=== PATIENT | male | born 1970 | race Hispanic/Latino ===

== ENCOUNTER 2022-06-07 07:25 | Day surgery (SDC) | payer BC ==
[2022-06-04 11:40] LABS: BASOPHILS % (AUTO) 0.8 % (0.0-5.0); EOSINOPHILS % (AUTO) 1.3 % (0.0-8.0); LYMPHOCYTES % (AUTO) 22.1 % (21.0-51.0); MEAN CORPUSCULAR HGB CONC 34.9 g/dL (32.0-36.0); MEAN CORPUSCULAR VOLUME 80.2 fL (79-99); MONOCYTES % (AUTO) 5.5 % (3.0-13.0); NEUTROPHILS % (AUTO) 69.9 % (40.0-77.0); PLATELET COUNT (AUTO) 156 K/uL (130-400); RED BLOOD CELL COUNT(AUTO) 5.61 MIL/uL (4.50-6.20); RED CELL DISTRIBUTION WIDTH 13.3 % (11.0-15.5); WHITE BLOOD COUNT (AUTO) 7.1 K/uL (4.8-10.8)
[2022-06-04 11:50] LABS: CREATININE 0.9 mg/dL (0.5-1.5)
[2022-06-04 11:51] LABS: INR 0.94 (0.85-1.15); PROTHROMBIN TIME 10.3 SEC (9.6-11.6)
[2022-06-04 11:52] LABS: PARTIAL THROMBOPLASTIN TIME 27.4 SEC (26.3-35.5)
[2022-06-04 12:12] VITALS: BP 173/76
[2022-06-07] VITALS (15 sets, daily range): BP systolic 117–138; BP diastolic 65–83
[~2022-06-07] VITALS: Ht 170.2 cm; Wt 96.3 kg
[~2022-06-07 07:25] MED LIST: CEFAZOLIN SODIUM 1 GM VIAL IVP SCH; INSU100I24 SQ; METF-444 PO
[2022-06-07] MEDS ORDERED: NEOMY SULF/BACITRAC ZN/POLY OINT 30GM TUBE TP ONE (07:29)
[2022-06-07] MEDS ORDERED: BUPIVACAINE/PF 0.25% 30ML VIAL IJ ONE (07:29)
[2022-06-07] MEDS ORDERED: 0.9%NACL 1000ML 1,000 ML IV ONE (07:47)
[2022-06-07] MEDS ORDERED: GLIM4TAB36 PO (07:52)
[2022-06-07] MEDS ORDERED: MIDAZOLAM HCL 1 MG/ML 2ML VIAL ONE (09:07)
[2022-06-07] MEDS ORDERED: FAMOTIDINE 20MG VIAL IV ONE (09:08)
[2022-06-07] MEDS ORDERED: GLYCOPYRROLATE 1 MG/5 ML SYRINGE ONE (09:11)
[2022-06-07] MEDS ORDERED: FENTANYL CITRATE PF 50 MCG/1 ML 2ML VIAL ONE (09:11)
[2022-06-07] MEDS ORDERED: ROCURONIUM 10MG/1ML SYR 10 MG/ML ML ONE (09:11)
[2022-06-07] MEDS ORDERED: PROPOFOL 10 MG/ML 20ML VIAL IV ONE (09:11)
[2022-06-07] MEDS ORDERED: ONDANSETRON 4MG INJ ONE (09:38)
[2022-06-07] MEDS ORDERED: NEOSTIGMINE 5MG/5ML SYR IV ONE (09:59)
== END 2022-06-07 12:15 | disposition home or self-care (01) ==
LOC: DAH 07:25
PROVIDERS: ATTEND Urology
DX: N47.1 Phimosis (principal); K21.9 Gastro-esophageal reflux disease without esophagitis; E11.65 Type 2 diabetes mellitus with hyperglycemia; Z79.01 Long term (current) use of anticoagulants
CPT/HCPCS: 80048; 85025; 85610; 85730; 87426; 36415; 93005; 54161; 82948 ×2; A6260; A4663; A4606; J3490 ×3; J3010; J0690; J2710; J7030; J2250; J2704; J2405; A4215; A4223; A4222; A4221; A4600